=== PATIENT | female | born 1980 | race Caucasian/White ===

== ENCOUNTER 2020-02-01 09:43 | Emergency (ER) | payer OTHER, SELFPAY ==
[2020-02-01 09:55] VITALS: BP 118/83; PULSE 102; RESP 18; TEMP 36.8; O2SAT 100
--- NOTE | 2020-02-01 10:15 | ED.GENADULT ---
HPI - General Adult General Chief complaint: Upper Respiratory Infection Stated complaint: look at throat and anxious Time Seen by Provider: 02/01/20 10:09 Source: patient and RN notes reviewed Mode of arrival: ambulatory Limitations: no limitations History of Present Illness HPI narrative: Patient presents today concerned of bumps on the back of her tongue. States they have been there for years, but she has never gotten them checked out. She denies pain or any other symptoms to include cough, sore throat, ear pain, congestion, runny nose. She has tried no OTC treatment prior to arrival. MD complaint: Bumps on tongue Related Data Home Medications Medication Instructions Recorded Confirmed No Home Medications 02/01/20 02/01/20 Allergies Allergy/AdvReac Type Severity Reaction Status Date / Time No Known Allergies Allergy Verified 02/01/20 10:11 Review of Systems Review of Systems: Narrative: CONSTITUTIONAL: Denies body aches, fever, chills, or sweats. EYES: Denies visual changes, redness, or discharge. ENT: Denies rhinorrhea, congestion, sore throat, or otalgia.Bumps to back of tongue CARDIOVASCULAR: Denies chest pain, palpitations, or edema. RESPIRATORY: Denies cough or dyspnea. GASTROINTESTINAL: Denies abdominal pain, nausea, vomiting, or diarrhea. GENITOURINARY: Denies dysuria or hematuria. SKIN: Denies rash, itching, or wounds. MUSCULOSKELETAL: Denies back pain, joint pain, or myalgia. NEUROLOGIC: Denies headache, numbness, tingling, or weakness. PSYCH: Denies depression or anxiety. [facility] Past Medical History Medical History (Updated 02/01/20 @ 10:25 by Jennifer Owusu, [facility], ) Anxiety Comments At time of signature, I have reviewed and agree with nursing past medical, surgical, social and family history unless otherwise noted. Please see nursing chart for further information. There is no relevant family history pertinent to the presenting complaint Exam Narrative: Exam Narrative: GENERAL: Well-appearing, well-nourished, and in no acute distress. HEAD: Normocephalic, atraumatic. EYES: EOMI. No redness or drainage. Conjunctivae normal. ENT: Mucous membranes pink and moist. Nares clear. Throat normal. Uvula midline. Patient has normal taste buds to the posterior tongue. No abnormalities noted to the tongue, palate, lips, or gums. NECK: Normal AROM. Supple. No lymphadenopathy. CHEST: No respiratory distress. Clear to auscultation. HEART: Regular rate and rhythm. No murmur appreciated. Normal peripheral pulses. EXTREMITIES: Normal range of motion. No edema. SKIN: Warm, dry, no rash. Capillary refill normal. Normal skin turgor. NEURO: No focal deficits. Alert and oriented x3. Gait steady. PSYCH: Normal affect. No signs of depression or anxiety. Course Vital Signs Vital signs: Vital Signs Temperature 98.2 F 02/01/20 09:55 Pulse Rate 102 H 02/01/20 09:55 Respiratory Rate 18 02/01/20 09:55 Blood Pressure 118/83 02/01/20 09:55 Pulse Oximetry 100 02/01/20 09:55 Temperature 98.2 F 02/01/20 09:55 Pulse Rate 102 H 02/01/20 09:55 Respiratory Rate 18 02/01/20 09:55 Blood Pressure 118/83 02/01/20 09:55 Pulse Oximetry 100 02/01/20 09:55 Reviewed. Pt has been instructed to follow up with her PCP regarding her elevated blood pressure today. Medical Decision Making Differential Diagnosis Differential Diagnosis: Aphthous ulcer, taste buds, worried well, hand-foot mouth Vital Signs Vital Signs: Vital Signs Temperature 98.2 F 02/01/20 09:55 Pulse Rate 102 H 02/01/20 09:55 Respiratory Rate 18 02/01/20 09:55 Blood Pressure 118/83 02/01/20 09:55 Pulse Oximetry 100 02/01/20 09:55 Temperature 98.2 F 02/01/20 09:55 Pulse Rate 102 H 02/01/20 09:55 Respiratory Rate 18 02/01/20 09:55 Blood Pressure 118/83 02/01/20 09:55 Pulse Oximetry 100 02/01/20 09:55 Critical Care Time Critical Care Time Critical Care Time: No Discharge Pl
== END 2020-02-01 10:22 | disposition home or self-care (01) ==
PROVIDERS: Emergency Provider Nurse Practitioner
DX: Z03.89 Encounter for observation for other suspected diseases and conditions ruled out (principal)
CPT/HCPCS: 99211; G0463

== ENCOUNTER 2020-05-19 09:10 | Emergency (ER) | payer OTHER, SELFPAY ==
[2020-05-19 09:13] VITALS: BP 122/74; PULSE 110; RESP 17; TEMP 36.6; O2SAT 100
--- NOTE | 2020-05-19 09:24 | ED.GENADULT ---
HPI - General Adult General Chief complaint: Psychiatric Symptoms <Shira Ozuna MD - Last Filed: 05/19/20 19:22> Stated complaint: psych <Shira Ozuna MD - Last Filed: 05/19/20 19:22> Time Seen by Provider: 05/19/20 09:23 <Shira Ozuna MD - Last Filed: 05/19/20 19:22> Source: patient <Shira Ozuna MD - Last Filed: 05/19/20 19:22> Mode of arrival: ambulatory <Shira Ozuna MD - Last Filed: 05/19/20 19:22> Limitations: no limitations <Shira Ozuna MD - Last Filed: 05/19/20 19:22> History of Present Illness HPI narrative: Patient is a 39-year-old female with a history of anxiety and depression who presents for evaluation of hallucinations. Patient states she has been having auditory hallucinations, stating that she hears voices coming from her food. She denies any visual hallucinations. Patient states she has no appetite, has not had much oral intake over the past week. Patient was reportedly hospitalized at [place] in November, discharged home and did not fill any of her prescriptions. When asked why, she is not able to provide a reason. Patient states that she has no acute pain. She denies alcohol or drug use. When questioned about suicidal ideation, patient states that she often thinks about hurting herself but does not have an exact plan. <Shira Ozuna MD - Last Filed: 05/19/20 19:22> Related Data Home medications: Home Medications Medication Instructions Recorded Confirmed No Home Medications 02/01/20 02/01/20 <Shira Ozuna MD - Last Filed: 05/19/20 19:22> Allergies/adverse reactions: Allergies Allergy/AdvReac Type Severity Reaction Status Date / Time No Known Allergies Allergy Verified 05/19/20 09:28 <Shira Ozuna MD - Last Filed: 05/19/20 19:22> Review of Systems Review of Systems: Narrative: CONSTITUTIONAL: Denies fever CARDIOVASCULAR: Denies chest pain RESPIRATORY: Denies cough or dyspnea. GASTROINTESTINAL: Denies abdominal pain SKIN: Denies rash MUSCULOSKELETAL: Denies back pain NEUROLOGIC: Denies headache <Shira Ozuna MD - Last Filed: 05/19/20 19:22> [facility] Past Medical History Medical History: Medical History Anxiety <Shira Ozuna MD - Last Filed: 05/19/20 19:22> Social History Social History: Social History (Updated 05/19/20 @ 09:53 by Shira Ozuna MD) Smoking status: Never smoker Alcohol intake: never Substance use: never Living arrangements: with friend(s) Gender identity (if verbalized by the patient): Female <Shira Ozuna MD - Last Filed: 05/19/20 19:22> Exam Narrative: Exam Narrative: GENERAL: Awake, alert,thin HEAD: Normocephalic, atraumatic. EYES: PERRLA and EOMI. ENT: Nares clear, no rhinorrhea or epistaxis. Mucous membranes dry NECK: Supple. CHEST: No respiratory distress, breathing even and non labored HEART: Regular rate, sinus rhythm ABDOMEN: Scaphoid, non distended, non tender EXTREMITIES: Normal range of motion. No edema. SKIN: Warm, dry, no rash. NEURO:No focal deficits. Alert and oriented x3 <Shira Ozuna MD - Last Filed: 05/19/20 19:22> Course Reevaluation(s) Reevaluation #1: Patient has been sleeping all night without any events. she is now pacing the room. I will order zyprexa for pain. Care to be turned back over to Dr. Ozuna at 0700 <Coby Melton MD - Last Filed: 05/24/20 05:51> Assumed care from Dr. Ozuna. Pt medically stable for psych admit. Awaiting placement. <Bola Fagan MD - Last Filed: 05/22/20 01:56> Date: 05/20/20 <Coby Melton MD - Last Filed: 05/24/20 05:51> 05/21/20 <Bola Fagan MD - Last Filed: 05/22/20 01:56> Time: 06:49 <Coby Melton MD - Last Filed: 05/24/20 05:51> 19:00 <Bola Fagan MD - Last Filed: 05/22/20 01:56> Reevaluation #2: PAtient earlier in the nig
--- NOTE | 2020-05-19 09:44 | ECG_ITS ---
Measurements Intervals [place] Rate: 95 P: 74 TX: 143 QRS: 78 QRSD: 76 T: 74 QT: 342 QTc: 431 Interpretive Statements SINUS RHYTHM NORMAL ECG Electronically Signed On 05-19-2020 11:58:10 CDT by Jc Otoole D.O.
--- NOTE | 2020-05-19 10:10 | PC.NURSE ---
Pt refusing IV fluids at this time. EDP made aware. NO further orders at this time.
[2020-05-19 10:15] LABS: Basophils Percent Auto 0.7 % (0.2-1.2); Eosinophils Absolute Auto 0.1 K/mm3 (0-0.3); Eosinophils Percent Auto 1.2 % (0-4.4); Hematocrit 42.8 % (37.0-47.0); Hemoglobin 14.6 g/dL (12.0-15.0); Immature Granulocyte Absolute 0.03 K/mm3 (0.00-0.031); Immature Granulocyte Percent A 0.5 % (0-0.5); Lymphocytes Absolute Auto 1.47 K/mm3 (0.9-3.2); Lymphocytes Percent Auto 25.3 % (18.3-44.2); Mean Corpuscular HGB Conc 34.1 g/dl (32-36); Mean Corpuscular Hemoglobin 31.1 pg (26-34); Mean Corpuscular Volume 91.1 fl (80-100); Mean Platelet Volume 11.9 fl (7.4-10.4); Monocytes Absolute Auto 0.4 K/mm3 (0.1-0.6); Monocytes Percent Auto 6.7 % (2.6-8.5); Neutrophils Absolute Auto 3.8 K/mm3 (1.3-6.7); Neutrophils Percent Auto 65.6 % (45.5-73.1); Platelet Count Result 183 k/mm3 (150-375); Red Cell Distribution Width 12.9 % (11.5-14.5); White Blood Count 5.8 K/mm3 (4.5-10.0)
--- NOTE | 2020-05-19 10:35 | PC.NURSE ---
Report given to Indira RN
[2020-05-19 10:36] LABS: Acetaminophen < 10 ug/mL (10-30); Ethanol < 10 mg/dL (<10); Salicylate < 1.0 mg/dL (2-20)
[2020-05-19 10:37] LABS: Alanine Aminotransferase 17 U/L (4-35); Albumin Level 4.5 g/dL (3.5-5.1); Alkaline Phosphatase 68 U/L (38-126); Anion Gap 10 mmol/L (8-16); Aspartate Amino Transferase 26 U/L (14-36); Bilirubin,Total 1.1 mg/dL (0.2-1.3); Blood Urea Nitrogen 15 mg/dL (7-17); Calcium 9.6 mg/dL (8.4-10.2); Carbon Dioxide 26 mmol/L (22-30); Chloride 103 mmol/L (98-107); Estimated CRCL calculation 66 ml/min; Estimated Glomerular Filt Rate > 60; Glucose 87 mg/dL (65-105); Potassium 3.6 mmol/L (3.4-5.0); Sodium 139 mmol/L (137-145)
[2020-05-19 11:07] LABS: Thyroid Stimulating Hormone 0.676 uIU/mL (0.465-4.680)
[2020-05-19 12:30] LABS: Add Urine Microscopic? YES; Appearance Urine Cloudy (Clear); Bacteria Urine Trace /hpf; Bilirubin Urine Negative (Negative); Blood Urine 1+ (Negative); Color Urine Amber (Yellow); Glucose Urine UA Negative (Negative); Ketones Urine Trace mg/dL (Negative); Leukocyte Esterase Ur 1+ LEU/UL (Negative); Mucus Urine Heavy /lpf; Nitrate Urine Positive (Negative); Protein Urine 1+ mg/dL (Negative); Specific Grav Ur 1.024 (1.001-1.035); Squamous Epithelial Cell Urine Occasional /hpf (Few); WBC Urine 31-50 /hpf
[2020-05-19 12:40] LABS: Amphetamine Screen Urine Negative (Negative); Barbiturate Screen Urine Negative (Negative); Benzodiazepines Screen Urine Negative (Negative); Cannabinoid Screen Urine Negative (Negative); Cocaine Screen Urine Negative (Negative); Methadone Screen Urine Negative (Negative); Opiate Screen Urine Negative (Negative); Phencyclidine Screen Urine Negative (Negative)
[2020-05-19 13:10] VITALS: BP 130/87; PULSE 99; RESP 16; O2SAT 98
[2020-05-19] MEDS: CEPHALEXIN 500 MG CAPSULE PO ×2 (13:24→21:49)
[2020-05-19 17:00] VITALS: BP 136/89; PULSE 92; RESP 16; TEMP 36.8; O2SAT 99
[2020-05-19 20:01] VITALS: BP 126/79; PULSE 94; RESP 16; TEMP 36.7; O2SAT 99
[2020-05-20 03:55] VITALS: BP 128/86; PULSE 87; RESP 18; TEMP 36.7; O2SAT 98
[2020-05-20] MEDS: OLANZapine 10 MG INJ VIAL 5 MG IM (06:54)
--- NOTE | 2020-05-20 06:54 | PC.NURSE ---
pt began pacing around room, talking about eating people and her children going to hell. MD notified and meds ordered. Meds given and charge nurse assisted in having pt remain in bed till meds start working. sitter at bedside.
--- NOTE | 2020-05-20 07:27 | PC.NURSE ---
assumed care of patient, sitter at bedside
--- NOTE | 2020-05-20 11:00 | PC.NURSE ---
solution manager called this nurse to inform that patient was hallucinating, saying someone is going to hurt her Children. Medications given by monorail charger operator per verbal order of Dr Fink.
[2020-05-20] MEDS: HALOPERIDOL LACTATE 5 MG/ML VIAL IM (11:08)
[2020-05-20] MEDS: diphenhydrAMINE HCl INJ 50 MG/ML VIAL 25 MG IM (11:09)
--- NOTE | 2020-05-20 11:25 | PC.NURSE ---
Patient repeating Don't let them kill my kids, don't you kill my kids. Constant reassurance given by this nurse and Alayna CLEMENTS. Security at bedside.
--- NOTE | 2020-05-20 11:35 | PC.NURSE ---
Pt sleeping, security no longer at bedside. Sitter remains at bedside.
[2020-05-20 12:57] VITALS: BP 100/81; PULSE 82; O2SAT 97
[2020-05-20 14:08] VITALS: BP 118/91
--- NOTE | 2020-05-20 16:02 | PC.NURSE ---
Crisis done speakign with patient
[2020-05-20 18:37] VITALS: BP 107/86; PULSE 94; RESP 18; O2SAT 96
--- NOTE | 2020-05-20 19:43 | PCDIET ---
Patient ran out of ED and ran almost to the OB department. Patient was safely brought in placed back in her room.
--- NOTE | 2020-05-20 21:15 | PC.NURSE ---
Patient transferred to room 15- report given to receiving nurse
--- NOTE | 2020-05-20 21:17 | PC.NURSE ---
Report received from TYREE Schumacher. Assumed care of patient at this time.
--- NOTE | 2020-05-20 21:20 | PC.NURSE ---
Patient refusing to speak to this RN.
[2020-05-21 01:50] VITALS: BP 122/87; PULSE 101; RESP 18; TEMP 36.6; O2SAT 98
--- NOTE | 2020-05-21 03:04 | PC.NURSE ---
Patient ambulated out of her room and was redirected back to her room.
--- NOTE | 2020-05-21 03:49 | PC.NURSE ---
Patient attempted again to run out of facility x2 at this time. patient was then taken back to her room. made aware.
--- NOTE | 2020-05-21 04:02 | PC.NURSE ---
pt beginning to struggle with thoughts and behaviors. pt trying to elope from the dept x3. pt unable to reason with staff. pt making no sense, talking gibberish. vrbo from dr bar for Haldol 5 mg IM and Ativan 2 mg IM X1 PT RECEIVED IM ADMINISTRATION TO RIGHT HIP, TOLERATED WELL. PT BACK IN ROOM WITH SECURITY AT BEDSIDE
[2020-05-21] MEDS: CEPHALEXIN 500 MG CAPSULE PO (09:10)
--- NOTE | 2020-05-21 09:13 | PC.NURSE ---
pt attempting to elope from department. Stopped by staff and security - brought back to room without incident.
[2020-05-21 11:14] VITALS: BP 140/91; PULSE 124; TEMP 37.1; O2SAT 98
--- NOTE | 2020-05-21 11:24 | PC.NURSE ---
requested information faxed to [facility] at [phone]
[2020-05-21 13:06] LABS: SARS-CoV-2 RNA PCR Negative
--- NOTE | 2020-05-21 13:37 | PC.NURSE ---
requested paperwork and information faxed to [facility]
--- NOTE | 2020-05-21 15:18 | PC.NURSE ---
requested information faxed again to [facility]
--- NOTE | 2020-05-21 19:16 | PC.NURSE ---
eric ironworker apprentice here to do new involuntary petition
--- NOTE | 2020-05-21 20:34 | PC.NURSE ---
spoke with clinical care coordinator at [facility]. she states that they have all the required information and patient is now waiting bed assignment at that facility
--- NOTE | 2020-05-21 23:07 | PC.NURSE ---
Report from TYREE Pak received. Still awaiting on bed at [facility].
[2020-05-22] MEDS: CEPHALEXIN 500 MG CAPSULE PO (00:11)
[2020-05-22 00:13] VITALS: BP 103/64; PULSE 66; RESP 16; TEMP 36.6; O2SAT 100
--- NOTE | 2020-05-22 02:04 | PC.NURSE ---
Patient going to bed 5309 A. Report given to TYREE Gastelum. ETA 0330 for ambulance. Call [phone] for updates.
--- NOTE | 2020-05-22 05:06 | PC.NURSE ---
ETA for ambulance pushed back to 0530.
[2020-05-22 05:29] VITALS: BP 110/54; PULSE 62; RESP 16; TEMP 36.2; O2SAT 100
== END 2020-05-22 05:35 ==
PROVIDERS: Emergency Medicine; Emergency Provider Emergency Medicine
DX: R44.0 Auditory hallucinations (principal); N30.00 Acute cystitis without hematuria; Z20.828 Contact with and (suspected) exposure to other viral communicable diseases; F41.9 Anxiety disorder, unspecified; F32.9 Major depressive disorder, single episode, unspecified
CPT/HCPCS: 36415; 51701; 80053; 80307; 81001; 81025; 83735; 84443; 85025; 87077; 87086; 87088; 87186; 87635; 93005; 96372; 99285; A9270; C9803; J1200; J1630; J2060; U0003